=== PATIENT | male | born 2000 | race African-American/Black ===

== ENCOUNTER 2022-08-27 11:02 | Emergency (ER) | payer OTHER, SELFPAY ==
--- NOTE | ~2022-08-27 | XR_ITS ---
EXAMINATION: XR chest 2V 08/27/2022 12:11 INDICATION: Chest pain, shortness of breath PROCEDURE: 2 view chest COMPARISON: No prior studies for comparison. FINDINGS: The lungs are clear. The cardiomediastinal silhouette is within normal limits. There are no pleural effusions. There is no pneumothorax suspected. IMPRESSION: 1: NO ACUTE CARDIOPULMONARY DISEASE. Reviewed, dictated and finalized at location A. TH SERVICES DIRECTOR
[2022-08-27 11:05] VITALS: BP 125/80; PULSE 82; RESP 20; TEMP 36.2; O2SAT 100
--- NOTE | 2022-08-27 11:14 | ECG_ITS ---
Measurements Intervals [place] Rate: 60 P: -12 IN: 166 QRS: 60 QRSD: 80 T: 54 QT: 369 QTc: 371 Interpretive Statements SINUS RHYTHM ST ELEVATION IN DIFFUSE LEADS- CONSIDER PERICARDITIS, ACUTE INJURY OR EARLY REPOLARIZATION ABNORMALITY ABNORMAL ECG NO PREVIOUS ECG AVAILABLE FOR COMPARISON Electronically Signed On 08-27-2022 15:30:22 [employer]BUTION LEAD by Miguelito García D.O.
[2022-08-27 11:22] VITALS: BP 119/66; PULSE 70; RESP 16; O2SAT 100
[2022-08-27 12:01] VITALS: BP 118/71; PULSE 69; RESP 21; O2SAT 96
--- NOTE | 2022-08-27 12:02 | ED.GENADULT ---
HPI - General Adult General Chief complaint: Anxiety Stated complaint: Anxiety, chest tightness Time Seen by Provider: 08/27/22 11:15 Source: patient and family Mode of arrival: ambulatory Limitations: no limitations History of Present Illness HPI narrative: Patient is a 21 y/o male who presents to the ED with c/o L sided CP. Patient reports having dull L sided chest pain. He states the pain occurs every day, several times a day, for the last 6 weeks. He states the pain lasts for a second or so at a time. He denies aggravating or alleviating factors to his pain. He has tried taking ibuprofen with minimal relief. He does also report feeling mildly short of breath with the pain, described as though he has to purposely take a deep breath. He denies any recent cough or cold symptoms, fevers, lower extremity pain or swelling, nausea, vomiting, abdominal pain. Father at bedside assisted in providing information. He states patient has a history of his severe anxiety and mental health issues, including schizophrenia. They are in the process of finding a psychiatrist. Patient is on several mental health medications, including olanzapine, but father is unsure if he has been taking them. He does state they had a difficult conversation this weekend and patient has had increased stress and anxiety since then. Patient denies any SI or HI. Related Data Allergies Allergy/AdvReac Type Severity Reaction Status Date / Time No Known Allergies Allergy Verified 08/27/22 11:23 Review of Systems Review of Systems: CONSTITUTIONAL: Denies fever, chills, or sweats. ENT: Denies rhinorrhea, congestion, sore throat. CARDIOVASCULAR: See HPI. RESPIRATORY: See HPI. GASTROINTESTINAL: Denies abdominal pain, nausea, vomiting. PSYCHIATRIC: See HPI. All systems reviewed & are unremarkable except as noted in HPI and below PMFSH Past Medical History Medical History (Updated 08/27/22 @ 18:50 by Kim Noel PA-C) Anxiety Schizophrenia Surgical History Surgical History (Updated 08/27/22 @ 18:50 by Kim Noel PA-C) No pertinent past surgical history Social History Social History (Updated 08/27/22 @ 18:50 by Kim Noel PA-C) Smoking status: Never smoker Exam Narrative: GENERAL: Well appearing, thin, non-toxic, in no acute distress. HEAD: Normocephalic, atraumatic. NECK: Supple. No adenopathy, no masses. RESPIRATORY: Airway patent, respirations nonlabored. Clear to auscultation bilaterally, no rales, rhonchi, wheezing. CARDIOVASCULAR: Regular rate and rhythm without murmurs, rubs, or gallops. Peripheral pulses 2+ and equal bilaterally. ABDOMINAL: Soft, nontender, nondistended, no hepatosplenomegaly. Normoactive BS. MUSCULOSKELETAL: Moves all extremities. Strength/ROM intact without gross deformities. Left anterior chest wall tenderness to palpation. SKIN: Warm, dry, normal color. No rashes. NEURO: A&O X3. Speech clear. Cranial nerves II-XII grossly intact. Steady gait. No ataxic movements. PSYCHIATRIC: Somewhat flat affect, avoids eye contact. Occasionally speaks off topic, otherwise normal interaction. Course Vital Signs Vital signs: Vital Signs Temperature 97.1 F L 08/27/22 11:05 Pulse Rate 82 08/27/22 11:05 Respiratory Rate 20 08/27/22 11:05 Blood Pressure 125/80 08/27/22 11:05 Pulse Oximetry 100 08/27/22 11:05 Oxygen Delivery Room Air 08/27/22 11:05 Temperature 97.1 F L 08/27/22 11:05 Pulse Rate 67 08/27/22 13:40 Respiratory Rate 16 08/27/22 13:40 Blood Pressure 114/72 08/27/22 13:40 Pulse Oximetry 97 08/27/22 13:40 Oxygen Delivery Room Air 08/27/22 11:[address] [facility] Narrative Medical decision making narrative: Patient presented to ED with 6-week history of second long episodes of left-sided chest pain, associated with mild difficulty breathing, anxiety. Patient's vital stable upon arrival. Chest wall tenderness to palpation. EKG obtained s
[2022-08-27 12:14] VITALS: BP 123/74; PULSE 65; RESP 15; O2SAT 100
[2022-08-27 12:36] LABS: Basophils Percent Auto 0.8 % (0.2-1.2); Eosinophils Absolute Auto 0.1 K/mm3 (0-0.3); Eosinophils Percent Auto 1.9 % (0-4.4); Hematocrit 41.6 % (42.0-52.0); Hemoglobin 14.9 g/dL (14.0-18.0); Immature Granulocyte Absolute 0.01 K/mm3 (0.00-0.031); Immature Granulocyte Percent A 0.2 % (0-0.5); Lymphocytes Absolute Auto 1.98 K/mm3 (0.9-3.2); Lymphocytes Percent Auto 38.4 % (18.3-44.2); Mean Corpuscular HGB Conc 35.8 g/dl (32-36); Mean Corpuscular Hemoglobin 30.4 pg (26-34); Mean Corpuscular Volume 84.9 fl (80-100); Mean Platelet Volume 10.2 fl (7.4-10.4); Monocytes Absolute Auto 0.3 K/mm3 (0.1-0.6); Neutrophils Absolute Auto 2.7 K/mm3 (1.3-6.7); Neutrophils Percent Auto 52.7 % (45.5-73.1); Platelet Count Result 286 k/mm3 (150-375); Red Cell Distribution Width 11.1 % (11.5-14.5); White Blood Count 5.2 K/mm3 (4.5-10.0)
[2022-08-27 13:01] VITALS: BP 113/75; PULSE 65; RESP 20; O2SAT 99
[2022-08-27 13:02] LABS: CRP 0.6 mg/dL (<1.0)
[2022-08-27 13:05] LABS: Troponin I < 0.012 ng/mL (0.000-0.034)
[2022-08-27 13:09] LABS: Erythrocyte Sedimentation Rate 1 mm/hr (0-20)
[2022-08-27 13:40] VITALS: BP 114/72; PULSE 67; RESP 16; O2SAT 97
== END 2022-08-27 13:40 | disposition home or self-care (01) ==
PROVIDERS: Emergency Provider Physician Assistant
DX: R07.89 Other chest pain (principal); F41.9 Anxiety disorder, unspecified; F20.9 Schizophrenia, unspecified; R94.31 Abnormal electrocardiogram [ECG] [EKG]
CPT/HCPCS: 36415; 71046; 84484; 85025; 85652; 86140; 93005; 99284